=== PATIENT | male | born 1955 | race Caucasian/White ===

== ENCOUNTER 2017-08-29 11:36 | Outpatient (CLI) | payer BC, OTHER ==
[2017-08-29 12:43] LABS: #Basophils 0.1 thou/uL (0.0-0.2); #Eosinphils 0.5 thou/uL (0.0-0.7); #Lymphocytes 2.8 thou/uL (1.20-3.40); #Monocytes 0.7 thou/uL (0.11-0.59); #Neutrophils 4.7 thou/uL (1.40-6.50); %Basophils 0.9 % (0.0-1.0); %Eosinophils 5.7 % (0.0-10.0); %Lymphocytes 31.6 % (21.0-51.0); %Monocytes 7.9 % (0.0-10.0); Mean Platelet Volume 7.7 fL (7.4-10.4); Red Blood Cell (RBC) Count 5.33 mill/uL (4.70-6.10); White Blood Cell (WBC) Count 8.7 thou/uL (4.8-10.8)
[2017-08-29 13:02] LABS: Anion Gap 16 mmol/L (10-20); BUN (Urea Nitrogen) 20 mg/dL (8.4-25.7); Calc. Creatinine Clearance 0 mL/min (70-130); Calcium 9.7 mg/dL (7.8-10.44); Carbon Dioxide 22 mmol/L (22-29); Chloride 109 mmol/L (98-107); Estimated GFR-MDRD Greater than 90
== END 2017-08-29 11:37 | disposition home or self-care (01) ==
LOC: LABBT 11:36
PROVIDERS: ATTEND Orthopaedic Surgery
DX: Z01.818 Encounter for other preprocedural examination (principal); M75.101 Unspecified rotator cuff tear or rupture of right shoulder, not specified as traumatic
CPT/HCPCS: 80048; 85025; 93005; 93010

== ENCOUNTER 2017-09-06 08:46 | Day surgery (SDC) | payer BC, OTHER ==
[2017-08-29 11:49] VITALS: BMI 36.8
[2017-09-06] MEDS ORDERED: Midazolam HCl 2 mg/2 ml Vial ONE (09:57)
[2017-09-06] MEDS ORDERED: Ropivacaine 0.2% HCl/PF 20 ML ONE (09:57)
[2017-09-06] MEDS ORDERED: Fentanyl 100 MCG/2 ML VIAL ONE (09:57)
[2017-09-06] MEDS ORDERED: Promethazine HCl 25 MG/ML VIAL IM PRN (10:28)
[2017-09-06] MEDS ORDERED: Zolpidem Tartrate 5 MG TAB PO PRN (10:28)
[2017-09-06] MEDS ORDERED: Ropivacaine 0.2% 550 ML 550 ML NERVE BLCK SCH (10:28)
[2017-09-06] MEDS ORDERED: Ondansetron HCl/PF 4 MG/2 ML Vial IVP PRN (10:28)
[2017-09-06] MEDS ORDERED: HYDROcodone/Acetaminophen 10/325 mg Tablet PO PRN ×2 (10:28)
[2017-09-06] MEDS ORDERED: traMADol HCl 50 MG TAB PO PRN ×2 (10:28)
[2017-09-06] MEDS ORDERED: Fentanyl 100 MCG/2 ML VIAL IV PRN (10:29)
--- NOTE | 2017-09-06 13:13 | OP ---
DATE OF PROCEDURE: 09/06/2017 PREOPERATIVE DIAGNOSES: Rotator cuff tear, subscapularis tear, biceps tendinitis. POSTOPERATIVE DIAGNOSES: Rotator cuff tear, subscapularis tear, biceps tendinitis. PROCEDURE: Open subscapularis repair, open rotator cuff repair with acromioplasty, open biceps teno desis. SURGEON: Jerardo Love M.D. [employer] SALES REPRESENTATIVE: Freddie Allen PA-C. BLOOD LOSS: 100. SPECIMENS: None. DRAINS: None. COMPLICATIONS: None. PROCEDURE IN DETAIL: The patient was taken to the operating room where general anesthesia was induc ed. The patient placed in a beach chair position. Right arm was prepped and draped in the usual st erile fashion. I made a deltoid splitting approach. Anterior and inferior acromioplasty was perfor med to remove bursal tissue, the tear was easily identified. The biceps tendon was dislocated media lly. This was delivered from the joint, removed about 20 mm of the most proximal portion, prepared the next 25 mm with a FiberWire suture. I measured it and found it to be a size 7. I drilled a siz e 7-hole, delivered the tendon into the hole and fixed this with a 7 mm Bio-Tenodesis screw. Rotato r cuff tear was mobilized. I freshened up the greater tuberosity almost all the way over to the akil nt surface using rongeurs down to bleeding bone. I placed 2 anchors with 4 Levy-Nikos type grabbin g sutures for a good watertight repair and I then reinforced this with double row repair using Swive Lock device. Irrigation was performed. The deltoid was repaired back to bone with #1 Ethibond, sub cu was closed with 2-0 Vicryl, the skin was closed with sybil. There were no complications.
[2017-09-06] MEDS ORDERED: Neomycin-Polymyxin 1 ML AMP ONE (17:35)
== END 2017-09-06 16:05 ==
LOC: SDC 08:46
PROVIDERS: ATTEND Orthopaedic Surgery
PROC: 0LS30ZZ Reposition Right Upper Arm Tendon, Open Approach (ICD-10-PCS; principal; 2017-09-06)
PROC: 0LQ10ZZ Repair Right Shoulder Tendon, Open Approach (ICD-10-PCS; principal; 2017-09-06)
PROC: 0RHJ04Z Insertion of Internal Fixation Device into Right Shoulder Joint, Open Approach (ICD-10-PCS; principal; 2017-09-06)
DX: S46.011A Strain of muscle(s) and tendon(s) of the rotator cuff of right shoulder, initial encounter (principal); M75.21 Bicipital tendinitis, right shoulder; I10 Essential (primary) hypertension; E11.9 Type 2 diabetes mellitus without complications; M19.90 Unspecified osteoarthritis, unspecified site; M10.9 Gout, unspecified; Z79.84 Long term (current) use of oral hypoglycemic drugs; Z79.1 Long term (current) use of non-steroidal anti-inflammatories (NSAID); Z79.899 Other long term (current) drug therapy
CPT/HCPCS: A4306; C1713; G8984-GP-CN; G8985-GP-CN; G8986-GP-CN; J2250; J2795; J3010

== ENCOUNTER 2019-09-07 06:03 | Day surgery (SDC) | payer BC ==
[2019-09-04 12:54] VITALS: BMI 38.0
[2019-09-07] MEDS ORDERED: Sodium Chloride 0.9% 10 ML ONE (06:38)
[2019-09-07 06:51] LABS: #Basophils 0.1 thou/uL (0.0-0.2); #Eosinphils 0.2 thou/uL (0.0-0.7); #Lymphocytes 2.1 thou/uL (1.20-3.40); #Monocytes 0.6 thou/uL (0.11-0.59); #Neutrophils 3.8 thou/uL (1.40-6.50); %Basophils 0.8 % (0.0-1.0); %Eosinophils 3.5 % (0.0-10.0); %Lymphocytes 30.8 % (21.0-51.0); %Monocytes 9.2 % (0.0-10.0); %Neutrophils 55.6 % (42.0-75.0); Hemoglobin 15.5 g/dL (14.0-18.0); Mean Corpuscular HGB CONC 33.9 g/dL (32.0-36.0); Mean Corpuscular Hemoglobin 30.5 pg (27.0-31.0); Mean Corpuscular Volume 89.9 fL (78.0-98.0); Mean Platelet Volume 7.8 fL (7.4-10.4); Platelet Count 263 thou/uL (130-400); RBC Distribution Width 13.9 % (11.5-14.5); White Blood Cell (WBC) Count 6.9 thou/uL (4.8-10.8)
[2019-09-07 07:11] LABS: Anion Gap 16 mmol/L (10-20); BUN (Urea Nitrogen) 19 mg/dL (8.4-25.7); Calc. Creatinine Clearance 160 mL/min (70-130); Calcium 8.7 mg/dL (7.8-10.44); Carbon Dioxide 22 mmol/L (23-31); Chloride 107 mmol/L (98-107); Estimated GFR-MDRD Greater than 90; Glucose 179 mg/dL (80-115); Potassium 3.5 mmol/L (3.5-5.1); Sodium 141 mmol/L (136-145)
[2019-09-07] MEDS ORDERED: Fentanyl 100 MCG/2 ML VIAL ONE ×3 (07:12→08:55)
[2019-09-07] MEDS ORDERED: Promethazine HCl 25 MG/ML VIAL ONE (08:52)
[2019-09-07] MEDS ORDERED: HYDROcodone/Acetaminophen 10/325 mg Tablet ONE (11:14)
[2019-09-07] MEDS ORDERED: Glycopyrrolate 0.2 MG/ML 5 ML SYRINGE ONE (12:26)
[2019-09-07] MEDS ORDERED: Lidocaine 1% PF 5 ML VIAL ONE (12:26)
[2019-09-07] MEDS ORDERED: ePHEDrine 50 MG/ML VIAL ONE (12:26)
[2019-09-07] MEDS ORDERED: Dexamethasone 20 MG/5 ML VIAL ONE (12:26)
[2019-09-07] MEDS ORDERED: Ondansetron PF 4 MG/2 ML Vial ONE (12:26)
[2019-09-07] MEDS ORDERED: PROPOFOL 200 MG/20 ML VIAL ONE (12:26)
[2019-09-07] MEDS ORDERED: Rocuronium Bromide 10 MG/ML (10ML VIAL) ONE (12:26)
[2019-09-07] MEDS ORDERED: PHENYLEPHRINE-NS 100 MCG/ML 10 ML SYRINGE ONE (12:26)
--- NOTE | 2019-09-07 14:51 | OP ---
DATE OF PROCEDURE: 09/07/2019 PLASTICS ENGINEERING TEACHER: Lorenzo Bustillos PA-C PROCEDURES PERFORMED: Right L5-S1 laminectomy, facetectomy, foraminotomy, interbody arthrodesis, posterolateral arthrodesis, pedicle screw instrumentation, demineralized bone matrix, and local morselized autograft. DESCRIPTION OF PROCEDURE: The patient was brought to the operating room and intubated. He was rolled in a prone position on gel-filled chest rolls. An incision was made exposing L5 and S1 bilaterally, and the level was confirmed by x-ray. We performed a right L5-S1 laminectomy, facetectomy, foraminotomy completely decompressing right L5. The disk was incised and debrided for the purpose of arthrodesis, but the disk space would not allow placement of an intervertebral device. We next placed pedicle screws at right L5 and right S1 using lateral fluoroscopic guidance. The flash was secured between the screws. Distraction was applied. Nuts were applied and final tightened. The wound was then extensively irrigated, and MAC hemostasis was secured. A combination of demineralized bone matrix and local morselized autograft was laid over the lamina and posterolateral surfaces for the purpose of arthrodesis. Vancomycin powder was applied, and the wound was then closed in anatomic layers. Job ID: [id number]
== END 2019-09-07 11:30 | disposition home or self-care (01) ==
LOC: SDC 06:03
PROVIDERS: ATTEND Neurological Surgery
PROC: 0SG30J1 Fusion of Lumbosacral Joint with Synthetic Substitute, Posterior Approach, Posterior Column, Open Approach (ICD-10-PCS; principal; 2019-09-07)
PROC: 0SG30AJ Fusion of Lumbosacral Joint with Interbody Fusion Device, Posterior Approach, Anterior Column, Open Approach (ICD-10-PCS; principal; 2019-09-07)
PROC: 0ST40ZZ Resection of Lumbosacral Disc, Open Approach (ICD-10-PCS; principal; 2019-09-07)
DX: M51.17 Intervertebral disc disorders with radiculopathy, lumbosacral region (principal); M48.07 Spinal stenosis, lumbosacral region; E11.9 Type 2 diabetes mellitus without complications; I10 Essential (primary) hypertension; M10.9 Gout, unspecified; Z79.84 Long term (current) use of oral hypoglycemic drugs; Z79.82 Long term (current) use of aspirin; Z79.899 Other long term (current) drug therapy
CPT/HCPCS: 36415; 76000; 80048; 85025; 93005; 93010; C1713; C1768; J0131; J0690; J1100; J2001; J2405; J2550; J2704; J3010; J3370; J3490

== ENCOUNTER 2019-09-22 15:06 | Outpatient (CLI) | payer BC ==
--- NOTE | 2019-09-22 15:23 | RAD ---
EXAM: 3 views of the lumbosacral spine HISTORY: Low back pain and radiculopathy COMPARISON: None FINDINGS: 3 views of the lumbosacral spine shows moderate diffuse intervertebral disc space narrowing and osteophyte formation. There is slight wedging of L1 vertebral body with approximately 10% height loss. The patient is status post fusion of L5 and S1 with right-sided pedicle screws. No perih ardware lucency is seen. The sacroiliac joints are unremarkable. IMPRESSION: Degenerative and postsurgical changes of the lumbar spine without evidence of acute osseo us abnormality.
== END 2019-09-22 15:07 | disposition home or self-care (01) ==
LOC: BICRAD 15:06
PROVIDERS: ATTEND Neurological Surgery
DX: M47.26 Other spondylosis with radiculopathy, lumbar region (principal); Z98.890 Other specified postprocedural states
CPT/HCPCS: 72100

== ENCOUNTER 2019-11-03 14:59 | Outpatient (CLI) | payer BC ==
--- NOTE | 2019-11-03 15:30 | RAD ---
LUMBAR SPINE TWO VIEWS: HISTORY: Lumbar radiculopathy. COMPARISON: 09/22/2019 FINDINGS: Pedicle screws on the right at L5-S1 again noted. Mild loss of disk space at L4-L5 and L5-S1 again no michael. Mild to moderate degenerative spurring from the lumbar vertebrae again noted. Bridging osteophyt es laterally on the left at L1-L2. IMPRESSION: Stable postoperative and degenerative changes of the lumbar spine. POS: [facility]
== END 2019-11-03 15:00 | disposition home or self-care (01) ==
LOC: BICRAD 14:59
PROVIDERS: ATTEND Neurological Surgery
DX: M47.26 Other spondylosis with radiculopathy, lumbar region (principal); Z98.890 Other specified postprocedural states
CPT/HCPCS: 72100

== ENCOUNTER 2020-02-09 14:53 | Outpatient (CLI) | payer BC ==
--- NOTE | 2020-02-09 15:32 | RAD ---
EXAM: LUMBAR SPINE TWO VIEWS: 02/09/20 HISTORY: Lumbar radiculopathy. COMPARISON: 11/03/19. FINDINGS: There is underexposure of the AP exam. Right sided pedicle screws at L5-S1 are stable. Generalized sp ondylosis. No significant malalignment. IMPRESSION: Stable spondylosis. Stable right sided pedicle screws at L5-S1. POS: [facility]
== END 2020-02-09 14:54 | disposition home or self-care (01) ==
LOC: TBSIIMAG 14:53
PROVIDERS: ATTEND Neurological Surgery
DX: M47.26 Other spondylosis with radiculopathy, lumbar region (principal); Z98.890 Other specified postprocedural states
CPT/HCPCS: 72100

== ENCOUNTER 2020-05-05 14:14 | Outpatient (CLI) | payer BC ==
--- NOTE | 2020-05-05 14:37 | RAD ---
RADIOGRAPH LUMBAR SPINE 2 VIEWS: DATE: 05/05/2020 HISTORY: 65 year old male with low back pain COMPARISON: 02/09/2020 FINDINGS: 5 lumbar-type vertebrae. No scoliosis. Flowing marginal osteophytes protruding into the prevertebral space at lower thoracic spine, down into the upper lumbar spine. Moderate disc space narrowing at L5-S1. Mild disc space narrowing at L4-5. Unilateral right pedicle screws at L5 and S1. No major spon dylolisthesis. No interval change. IMPRESSION: 1) unilateral right pedicle screws at L5 and S1. 2) degenerative disc changes, mild and moderate 3) no interval change
== END 2020-05-05 14:15 | disposition home or self-care (01) ==
LOC: TBSIIMAG 14:14
PROVIDERS: ATTEND Neurological Surgery
DX: M54.5 Low back pain (principal); M51.36 Other intervertebral disc degeneration, lumbar region; M51.37 Other intervertebral disc degeneration, lumbosacral region
CPT/HCPCS: 72100